=== PATIENT | male | born 1945 | race Caucasian/White ===

== ENCOUNTER 2018-02-13 20:18 | Emergency (ER) | payer MEDICARE, OTHER ==
[2018-02-13 22:33] LABS: BASOPHILS 0.4 % (0-2); EOSINOPHILS 4.5 % (0-7); HEMATOCRIT 36.3 % (42.0-54.0); HEMOGLOBIN 11.8 g/dL (13.5-17.5); IMMATURE GRANULOCYTES 0.7 % (0-5); LYMPHOCYTES 35.2 % (15-50); MCH 27.6 pg (26.0-34.0); MCHC 32.5 g/dL (31.0-37.0); MCV 84.8 fL (80.0-100.0); MONOCYTES 12.1 % (2-11); NEUTROPHILS 47.1 % (40-80); PLATELET COUNT 292 10x3/uL (130-400); RBC 4.28 10x6/uL (4.20-6.10)
[2018-02-13 22:48] LABS: ALBUMIN 2.9 g/dL (3.4-5.0); ALT (SGPT) 46 U/L (10-68); BILIRUBIN - TOTAL 3.76 mg/dL (0.2-1.3); CALC OSMOLALITY 288 mosm/kg (275-300); CALCIUM 9.2 mg/dL (8.5-10.1); CARBON DIOXIDE 28.6 mmol/L (21.0-32.0); CHLORIDE - SERUM 95 mmol/L (98-107); GLUCOSE 375 mg/dL (74-106); MAGNESIUM - SERUM 1.9 mg/dL (1.8-2.4); POTASSIUM - SERUM 3.5 mmol/L (3.5-5.1); PROTEIN - SERUM 7.2 g/dL (6.4-8.2); SODIUM 134 mmol/L (136-145); UREA NITROGEN 30 mg/dL (7-18); eGFR NON AFRICAN AMERICAN 35 mL/min (90-120)
[2018-02-13 22:51] LABS: KETONE - SERUM NEGATIVE (NEGATIVE)
[2018-02-13 23:00] LABS: ALKALINE PHOSPHATASE 481 U/L (46-116)
== END 2018-02-13 23:47 | disposition home or self-care (01) ==
LOC: D.ER 20:18
PROVIDERS: Physician Assistant
DX: E11.65 Type 2 diabetes mellitus with hyperglycemia (principal); Z79.4 Long term (current) use of insulin; Z98.890 Other specified postprocedural states; N18.9 Chronic kidney disease, unspecified; K21.9 Gastro-esophageal reflux disease without esophagitis